=== PATIENT | female | born 2005 | race Two or more races ===

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

== ENCOUNTER 2024-01-25 01:11 | Emergency (ER) | payer MEDICAID ==
[2024-01-25] MEDS: Lidocaine 1% 10 ML MDV INJECT ONE (01:40)
[2024-01-25 02:04] VITALS: BP 138/86; PULSE 80
== END 2024-01-25 02:00 | disposition home or self-care (01) ==
LOC: JD.ED 01:11
DX: S51.812A Laceration without foreign body of left forearm, initial encounter (principal); Z79.2 Long term (current) use of antibiotics; Z79.899 Other long term (current) drug therapy; W26.9XXA Contact with unspecified sharp object(s), initial encounter
CPT/HCPCS: 12001; 99282; 99283; J3490

== ENCOUNTER 2024-05-17 21:26 | Emergency (ER) | payer MEDICAID | END 2024-05-17 21:50 | disposition left against medical advice (07) | LOC: JD.ED 21:26 | DX: Z53.21 Procedure and treatment not carried out due to patient leaving prior to being seen by health care provider (principal) ==

== ENCOUNTER 2024-05-19 02:30 | Emergency (ER) | payer MEDICAID ==
[2024-05-19 02:37] VITALS: BP 143/81; PULSE 91
== END 2024-05-19 03:49 | disposition home or self-care (01) ==
LOC: JD.ED 02:30
DX: F39 Unspecified mood [affective] disorder (principal)
CPT/HCPCS: 99283; 99284

== ENCOUNTER 2024-09-29 10:38 | Emergency (ER) | payer MEDICAID ==
[2024-09-29 11:41] LABS: HEMATOCRIT 39.9 % (37.0-47.0); HEMOGLOBIN 12.6 gm/dl (12.0-16.0); MEAN CORPUSCULAR HGB CONC 31.6 g/dl (32.0-36.0); MEAN CORPUSCULAR VOLUME 82.3 fl (83.0-99.0); MEAN PLATELET VOLUME 9.4 fl (9.4-12.3); PLATELET COUNT,PLT 333 K/mm3 (150-400); RED BLOOD CELL COUNT 4.85 M/mm3 (4.10-5.30); WHITE BLOOD CELL COUNT,WBC 6.89 K/mm3 (3.9-11.3)
[2024-09-29] MEDS: Iopamidol 612 MG/ML 30 ML SDV IVPUSH ONE (11:47)
[2024-09-29] MEDS: Sodium Chloride 0.9% 10 ML Syringe FLUSH ONE (11:47)
[2024-09-29 12:03] LABS: BAND PERCENT MAN 1 % (0-10); BASOPHILS PERCENT MAN 2 (0.1-1.2); EOSINOPHILS PERCENT MAN 0 % (0.7-5.8); LYMPHOCYTES % ATYPICAL MANUAL 1 %; LYMPHOCYTES PERCENT MAN 16 % (20-40); MONOCYTES PERCENT MAN 5 % (2-10)
[2024-09-29 12:06] LABS: PLATELET COUNT ESTIMATE ADEQUATE
[2024-09-29 12:11] LABS: ALBUMIN 3.6 g/dl (3.4-5.0); ANION GAP 12.5 (5-15); BILIRUBIN TOTAL 0.2 mg/dL (0.2-1.0); BUN/CREATININE RATIO 6.7 (14-18); CALCIUM 8.5 mg/dL (8.5-10.1); CREATININE 0.9 mg/dL (0.55-1.02); EST CRCL DRUG DOSING (CG) 82.48 mL/min; ETHANOL BLOOD MEDICAL 0.22 gm% (0.00); POTASSIUM,K 3.5 mEq/L (3.5-5.1); PROTEIN TOTAL,TP 7.4 g/dl (6.4-8.2); TSH 0.563 uIU/mL (0.516-4.13)
[2024-09-29] MEDS: Ketorolac 30 MG/ML SDV IVPUSH ONE (12:14)
[2024-09-29] MEDS: LORazepam 2 MG/ML SDV IVPUSH ONE (12:40)
[2024-09-29 12:47] LABS: BARBITURATE SCREEN,URINE NEGATIVE (CUTOFF=200); BENZODIAZEPINES SCREEN,URINE NEGATIVE (CUTOFF=150); BUPRENORPHINE SCREEN,URINE NEGATIVE (CUTOFF=10); METHADONE SCREEN, URINE NEGATIVE (CUTOFF=200); METHAMPHETAMINES SCREEN, URINE NEGATIVE (CUTOFF=500); OXYCODONE SCREEN,URINE NEGATIVE (CUT0FF=100); THC SCREEN,URINE 20 NG/ML PRESUMPTIVE POSITIVE (CUTOFF=50)
[2024-09-29 12:50] LABS: AMPHETAMINES SCREEN, URINE NEGATIVE (CUTOFF=500)
[2024-09-29 14:43] VITALS: BP 102/69; PULSE 94
== END 2024-09-29 13:22 | disposition home or self-care (01) ==
LOC: JD.ED 10:38 → EEVIPCON 10:38 → JD.ED 13:22
DX: S00.12XA Contusion of left eyelid and periocular area, initial encounter (principal); S80.12XA Contusion of left lower leg, initial encounter; S80.11XA Contusion of right lower leg, initial encounter; S60.222A Contusion of left hand, initial encounter; S60.221A Contusion of right hand, initial encounter; M54.6 Pain in thoracic spine; R68.84 Jaw pain; Y04.8XXA Assault by other bodily force, initial encounter
CPT/HCPCS: 36415; 70450; 71260; 72125; 74177; 80053; 80143; 80179; 80306; 80307; 81025; 84443; 85007; 85027; 96374; 96375; 99284; J1885; J2060; Q9967